=== PATIENT | male | born 1990 | race Caucasian/White ===

== ENCOUNTER 2021-05-16 22:12 | Emergency (ER) | payer BC, SELFPAY ==
--- NOTE | ~2021-05-16 | XR_ITS ---
EXAMINATION: XR chest 1V portable EXAM DATE: 05/17/2021 01:31 INDICATION: Headache and body aches. TECHNIQUE: Portable AP frontal chest x-ray was obtained. There is no prior study for comparison. FINDINGS: The lungs are clear. There are no pleural effusions. The cardiomediastinal silhouette is within normal limits. There is no pneumothorax suspected. The bones and soft tissues are unremarkab le. IMPRESSION: Normal chest x-ray exam. Reviewed, dictated and finalized at location B. [employer] IMPRESSION: Normal chest x-ray exam.
[2021-05-16 22:48] VITALS: BP 133/82; PULSE 95; RESP 17; TEMP 37.7; O2SAT 97
[2021-05-16 23:44] LABS: Basophils Absolute Auto 0.03 K/mm3 (0.00-0.10); Basophils Percent Auto 0.5 % (0.0-1.0); Eosinophils Absolute Auto 0.08 K/mm3 (0.02-0.50); Eosinophils Percent Auto 1.4 % (1.0-6.0); Hematocrit 49.8 % (40.0-54.0); Hemoglobin 16.9 g/dL (14.0-18.0); Immature Granulocyte Absolute 0.03 K/mm3 (0.00-0.00); Immature Granulocyte Percent A 0.5 % (0.0-0.0); Lymphocytes Percent Auto 40.1 % (18.0-42.0); Mean Corpuscular HGB Conc 33.9 g/dL (32.0-36.0); Mean Corpuscular Hemoglobin 32.1 pg (27.0-31.0); Mean Corpuscular Volume 94.7 fL (78.0-102.0); Mean Platelet Volume 11.2 fl (8.7-11.0); Monocytes Absolute Auto 0.56 K/mm3 (0.10-0.90); Monocytes Percent Auto 9.8 % (2.0-11.0); Neutrophils Absolute Auto 2.7 K/mm3 (1.7-7.2); Neutrophils Percent Auto 47.7 % (50.0-70.0); Platelet Count Result 160 K/mm3 (150-420); Red Blood Count 5.26 M/mm3 (4.70-6.10); Red Cell Distribution Width 12.4 % (11.6-14.4); White Blood Count 5.7 K/mm3 (4.8-10.8)
[2021-05-16 23:58] LABS: Alanine Aminotransferase 53 U/L (16-63); Albumin Level 3.5 g/dL (3.4-5.0); Alkaline Phosphatase 89 U/L (46-116); Anion Gap 10 mmol/L (8-16); Aspartate Amino Transferase 26 U/L (15-37); Bilirubin,Total 0.2 mg/dL (0.00-1.00); Blood Urea Nitrogen 16 mg/dL (7-18); Calcium 8.6 mg/dL (8.5-10.1); Carbon Dioxide 24 mmol/L (21-32); Chloride 106 mmol/L (98-108); Estimated CRCL calculation 105 ml/min; Estimated Glomerular Filt Rate > 60; Glucose 99 mg/dL (70-99); Osmolality Calculated 291 mOsm/kg (285-295); Potassium 4.1 mmol/L (3.5-5.1); Sodium 140 mmol/L (136-145)
[2021-05-16] MEDS: ACETAMINOPHEN 325 MG TABLET 650 MG PO (23:59)
[2021-05-17] MEDS: IBUPROFEN 400 MG TABLET 800 MG PO
[2021-05-17 00:13] LABS: Add Urine Microscopic? NO; Appearance Urine Clear (Clear); Bilirubin Urine Negative (Negative); Blood Urine Negative (Negative); Color Urine Yellow (Yellow); Glucose Urine UA Negative (Negative); Ketones Urine Negative (Negative); Leukocyte Esterase Ur Negative (Negative); Nitrate Urine Negative (Negative); Protein Urine Negative (Negative); Specific Grav Ur >= 1.030 (1.010-1.020); Urobilinogen Urine 0.2 mg/dL (0.2-1.0)
--- NOTE | 2021-05-17 02:55 | ED.GENADULT ---
HPI - General Adult General Chief complaint: Unspecified Stated complaint: headache, sore body Time Seen by Provider: 05/16/21 22:14 Source: patient and RN notes reviewed Mode of arrival: ambulatory Limitations: no limitations History of Present Illness complaint: OVALLE, generalized muscle aches, single loose stool and chills x 3 days. Onset (ago): day(s) (3) Location: head Radiation: non-radiation Severity: moderate Severity scale (1-10): 8 Quality: dull Pain Consistency: constant Relieving factors: none Exacerbating factors: none Associated symptoms: fever/chills Treatments prior to arrival: none Related Data Home Medications Medication Instructions Recorded Confirmed No Home Medications 05/16/21 05/16/21 Allergies Allergy/AdvReac Type Severity Reaction Status Date / Time No Known Allergies Allergy Verified 05/16/21 22:46 Review of Systems Review of Systems: All systems reviewed & are unremarkable except as noted in HPI and below PMFSH Past Medical History Medical History (Updated 05/17/21 @ 03:25 by Jeremy Singleton MD) Viral syndrome Exam Const: General: cooperative, no acute distress and well groomed Nutritional Appearance: well nourished Orientation/consciousness: patient oriented x3 Limitations: no limitations HENMT: Head: normal to inspection, normocephalic and atraumatic Ears: hearing grossly normal bilaterally, external ears normal, TM's normal bilaterally and EAC's normal General nose exam: Normal external nose present and Normal nares present Mouth: Yes Normal oral and palatal mucosa present, Yes lip normal, Yes tongue normal, Yes oropharynx normal and Yes moist mucous membranes Eyes: General: appearance normal, both eyes and all related structures Eyelids: eyelids normal Conjunctivae: conjunctivae normal Sclera: sclerae normal Cornea: corneas normal Pupils: Equal, round and reactive pupils present and Pupils normal by confrontation EOM: EOMs intact bilaterally Neck: Neck: normal visual inspection, full ROM, no lymphadenopathy and no meningeal signs Chest: Chest palpation & inspection: normal inspection of the chest Resp: Effort & Inspection: normal respiratory effort and able to speak in complete sentences Auscultation: clear to auscultation bilaterally Cardio: Jugular venous distension: no JVD Rate: regular rate Heart sounds: S1 normal heart sound present and S2 normal heart sound present Peripheral pulses: Peripheral pulses 2+ throughout GI: Inspection: normal to inspection GI Palp: No abdominal tenderness Auscultation: normal bowel sounds : General: Yes no CVA tenderness Back/Spine/Pelvis: Back: no CVA tenderness Thoracic/Lumbar Spine: thoracic and lumbar spine normal to inspection Skin: General skin exam: normal color Hair: normal Nails: normal Neuro: General: patient oriented x3, moves all extremities, no meningeal signs, no focal motor deficits and CN's II-XI intact bilaterally Cranial nerves: Yes CN's II-XII intact bilaterally, Yes Intact sense of smell present, Yes Equal, round and reactive pupils present, Yes Normal accommodation reflex present and Yes Bilaterally intact EOM present Cognition (Neuro): normal cognition Speech: normal speech Gait exam (Neuro): Normal gait present Motor exam (neuro): 5/5 motor strength present throughout Extrem: General: normal to inspection, full ROM, capillary refill normal and no pedal edema Psych: Appearance: grossly normal and well kempt Mental Status: mental status grossly normal Speech and movement: Normal speech and movement present Affect: normal affect Attitude: cooperative Thought process: Normal thought process present Thought content: Yes Normal thought content present Judgement: Good judgement present (Psych) Course Course Emergency Course: Pt was stable in the ED. Afebrile and pain-free. Reevaluation(s) Reevaluation #1: JESSENIAS. Date: 05/16/21 Time: 23:10 Vital Signs Vital signs: Vital Signs Tem
[2021-05-17 03:09] VITALS: BP 105/64; PULSE 66; RESP 17; TEMP 36.8; O2SAT 97
== END 2021-05-17 03:12 | disposition home or self-care (01) ==
PROVIDERS: Emergency Provider Emergency Medicine
DX: B34.9 Viral infection, unspecified (principal); J40 Bronchitis, not specified as acute or chronic
CPT/HCPCS: 36415; 71045; 80053; 81003; 85025; 99283; A9270

== ENCOUNTER 2025-01-09 22:44 | Emergency (ER) | payer OTHER, SELFPAY ==
--- NOTE | ~2025-01-09 | XR_ITS ---
Clinical History: PHYSICAL ALTERCATION. RIGHT SIDE NECK PAIN. Examination: [id number]_CR Comparison: None Technique: 4 views cervical spine Findings: C7 is not seen on lateral projection due to soft tissue artifact. No acute fracture or listhesis. Straightening of normal cervical lordosis. Prevertebral soft tissues within normal limits. Disc spaces maintained. No significant degenerative changes. Impression: 1. No acute fracture or listhesis cervical spine identified. 2. C7 not seen on lateral projection. Reviewed, dictated and finalized at location R. Impression: 1. No acute fracture or listhesis cervical spine identified. 2. C7 not seen on lateral projection.
--- NOTE | ~2025-01-09 | XR_ITS ---
Examination: XR shoulder RT min 2V Clinical History: PHYSICAL ALTERCATION. SUPERIOR RIGHT SHOULDER PAIN. Comparison: None Technique: 4 views right shoulder Findings/impression: 1. No fracture or dislocation right shoulder. Reviewed, dictated and finalized at location R.
[2025-01-09 22:45] VITALS: BP 155/87; PULSE 78; RESP 20; TEMP 36.4; O2SAT 100
--- NOTE | 2025-01-09 23:02 | ED_ITS ---
HPI - Extremity Problem General Chief complaint: Extremity Problem,Nontraumatic Stated complaint: neck pain Time Seen by Provider: 01/09/25 22:53 Source: patient Mode of arrival: ambulatory Limitations: no limitations History of Present Illness HPI Narrative: This is a 34-year-old male that has neck and right shoulder pain after he was put in handcuffs by a police communications dispatcher forcefully after police stated that he was and becoming more aggressive, and currently having a decreased range of motion in his right shoulder with decreased range of motion is cervical spine no neurological deficits no loss of consciousness no headache or blurry vision no chest pain or shortness of breath. Complaint: extremity pain and extremity swelling Onset (ago): hour(s) Pain Consistency: constant Location: right Severity scale (1-10): 8 Quality: aching Related Data Allergies Allergy/AdvReac Type Severity Reaction Status Date / Time No Known Allergies Allergy Verified 01/09/25 22:49 Review of Systems Review of Systems: All systems reviewed & are unremarkable except as noted in HPI and below PMFSH Past Medical History Medical History Viral syndrome Exam Const: General: healthy appearing and no acute distress Nutritional Appearance: well nourished Orientation/consciousness: patient oriented x3 Chest: Chest palpation & inspection: normal inspection of the chest Resp: Effort & Inspection: normal respiratory effort Auscultation: clear to auscultation bilaterally Cardio: Rate: regular rate Rhythm: regular rhythm GI: GI Palp: Yes Soft to palpation Auscultation: normal bowel sounds Skin: General skin exam: normal color Neuro: General: patient oriented x3, moves all extremities, no meningeal signs and no focal motor deficits Extrem: Other: Right shoulder pain with decreased range of motion and pain in the bicipital area with palpation Course Course Emergency Course: Medical decision-making narrative: Patient was evaluated by myself in the emergency department. History is obtained from the patient was an independent historian and physical exam performed with this by tech. X-ray of the cervical spine and shoulder obtained and reviewed with patient. Patient received 60 this mg of IM Toradol. Repeat assessment: Patient doing well on repeat exam with no acute distress Symptoms have mildly improved since arrival to the emergency department after 60mg of IM Toradol. Repeat vitals are stable Patient agrees with discussion after shared medical decision-making and agrees with discharge. All questions answered to the patient's satisfaction. Primary in 3 to 5 days for further evaluation treatment Vital Signs Vital signs: Vital Signs Temperature 36.4 C L 01/09/25 22:45 Pulse Rate 78 01/09/25 22:45 Respiratory Rate 20 01/09/25 22:45 Blood Pressure 155/87 H 01/09/25 22:45 Pulse Oximetry 100 01/09/25 22:45 Oxygen Delivery Room Air 01/09/25 22:45 Temperature 36.4 C L 01/09/25 22:45 Pulse Rate 78 01/09/25 22:45 Respiratory Rate 20 01/09/25 22:45 Blood Pressure 155/87 H 01/09/25 22:45 Pulse Oximetry 100 01/09/25 22:45 Oxygen Delivery Room Air 01/09/25 22:45 Critical Care Time Critical Care Time Critical Care Time: No Discharge Plan Discharge Clinical Impression: Right shoulder strain, Cervical muscle strain Patient Disposition: Home Condition: Stable Instructions: Antibiotic Form, Cervical Strain (ED), Rotator Cuff Injury (ED) Additional Instructions: Advised to take medication as prescribed and follow-up with primary care physician within next week further evaluation and treatment. Patient Language: Austrian Prescriptions: New tramadol 50 mg tablet 50 mg PO Q6H PRN (Reason: pain) Qty: 20 0RF cyclobenzaprine 10 mg tablet 10 mg PO TID Qty: 20 0RF No Action azithromycin [Zithromax TRI-PEPE] 500 mg tablet 500 mg PO DAILY 5 Days Qty: 5 0RF Mucinex DM 30-600 mg tablet extended release 12 hr 1 tablet PO Q12H Qty: 20 0RF Follow-up/Referrals: UNKNOWN,DOCTOR [Primary Care Provider]
[2025-01-09] MEDS: KETOROLAC (*BKC) 60 MG/2 ML VIAL IM (23:20)
[2025-01-09 23:48] VITALS: BP 128/68; PULSE 80; RESP 20; TEMP 36.6; O2SAT 99
== END 2025-01-09 23:54 | disposition home or self-care (01) ==
LOC: CHSED 23:33
PROVIDERS: Emergency Provider Emergency Medicine; Referring Provider Internal Medicine
DX: S46.911A Strain of unspecified muscle, fascia and tendon at shoulder and upper arm level, right arm, initial encounter (principal); S16.1XXA Strain of muscle, fascia and tendon at neck level, initial encounter; X58.XXXA Exposure to other specified factors, initial encounter
CPT/HCPCS: 72040; 73030; 96372; 99284; J1885